=== PATIENT | male | born 1975 | race Hispanic/Latino ===

== ENCOUNTER 2016-12-09 11:51 | Inpatient (IN) | payer OTHER ==
[2016-12-09 11:51] VITALS: BMI 25.1
[2016-12-09 12:35] LABS: BASO # 0.1 K/uL (0.0-0.2); BASO % 1.1 % (0.0-2.0); EOS # 0.4 K/uL (0.0-0.7); EOS % 4.8 % (0.0-4.0); LYMPH % 36.5 % (20.0-40.0); MEAN CELL VOLUME 89.4 fL (80.0-94.0); MEAN CORPUSCULAR HEMOGLOBIN 30.7 pg (27.0-31.0); MEAN CORPUSCULAR HGB CONC 34.4 g/dL (33.0-37.0); MEAN PLATELET VOLUME 10.3 fL (7.2-11.7); MONO # 0.5 K/uL (0.0-0.8); RED CELL DISTRIBUTION WIDTH 13.3 % (11.5-14.5); WHITE BLOOD COUNT 8.2 K/uL (4.8-10.8)
[2016-12-09 12:47] LABS: CHLORIDE 104 mmol/L (98-107); SODIUM 141 mmol/L (132-148)
[2016-12-09 12:48] LABS: POTASSIUM 4.2 mmol/L (3.6-5.2)
[2016-12-09 12:49] LABS: GFR AFRICAN-AMERICAN > 60
[2016-12-09 12:50] LABS: ALB/GLOB RATIO 1.5 (1.0-2.1); ALKALINE PHOSPHATASE 57 U/L (38-126); ALT/SGPT 70 U/L (21-72); AST/SGOT 50 U/L (17-59); BILIRUBIN,TOTAL 0.8 mg/dL (0.2-1.3); BLOOD UREA NITROGEN 12 mg/dL (9-20); CARBON DIOXIDE 20 mmol/L (22-30); GLUCOSE,RANDOM 260 mg/dL (75-110); TOTAL PROTEIN 8.2 g/dL (6.3-8.3)
[2016-12-09 12:51] LABS: ALCOHOL SERUM 182 mg/dl (0-10)
--- NOTE | 2016-12-09 13:03 | C.PDOC ---
History Of Present Illness 41 y/o male with Hx of HTN presents to ED stating he as been drinking and his mother requested he come and get detox. Patient states he doesn't know what he wants to do. Patient is intoxicated and denies fever, chills, sob, cough, chest pain or any other complaints at this time. Time Seen by Provider: 12/09/16 12:39 Chief Complaint (Nursing): Substance Abuse History Per: Patient History/Exam Limitations: no limitations Onset/Duration Of Symptoms: Days Current Symptoms Are (Timing): Still Present Suicide/Self Injury Attempted (Context): None Modifying Factor(s): Alcohol Involuntary Hold By: None Past Medical History Reviewed: Historical Data, Nursing Documentation, Vital Signs Vital Signs: Last Vital Signs Temp 97.5 F L 12/09/16 14:54 Pulse 94 H 12/09/16 14:54 Resp 18 12/09/16 14:54 BP 167/98 H 12/09/16 14:54 Pulse Ox 96 12/09/16 14:54 - Medical History PMH: Diabetes, HTN, Pancreatitis Surgical History: No Surg Hx - [facility] DPT ADMINISTRATION (07/05/13) DX ULTRASOUND-DIGESTIVE (05/08/05) INJECT/INFUSE NEC (11/03/04) MAGNETIC RESONANCE IMAGING OF BRAIN AND BRAIN STEM (05/08/05) OTHER ENDOSCOPY OF SM INTEST (05/08/05) PARENTERAL INFUSION OF CONCENTRATED NUT. SUBSTANCE (05/08/05) VENOUS CATHETERIZATION NEC (05/08/05) Family History: States: No Known Family Hx - Social History Hx Tobacco Use: No Hx Alcohol Use: No Hx Substance Use: No - Immunization History Hx Tetanus Toxoid Vaccination: No Hx Influenza Vaccination: Yes (2016) Hx Pneumococcal Vaccination: No Review Of Systems Except As Marked, All Systems Reviewed And Found Negative. Constitutional: Negative for: Fever, Chills Cardiovascular: Negative for: Chest Pain Respiratory: Negative for: Shortness of Breath Gastrointestinal: Negative for: Nausea, Vomiting Genitourinary: Negative for: Dysuria, Frequency Musculoskeletal: Negative for: Back Pain Skin: Negative for: Rash Physical Exam - Physical Exam Appears: Non-toxic, No Acute Distress, Other (Intoxicated, loud, ) Skin: Normal Color, Warm, Dry, No Rash Head: Atraumatic, Normacephalic Eye(s): bilateral: Normal Inspection Oral Mucosa: Moist Neck: Normal ROM, Supple Chest: Symmetrical Cardiovascular: Rhythm Regular Respiratory: Normal Breath Sounds, No Rales, No Rhonchi, No Wheezing Gastrointestinal/Abdominal: Soft, No Tenderness, No Guarding, No Rebound Neurological/Psych: Oriented x3 ED Course And Treatment - Laboratory Results Result Diagrams: 12/09/16 12:28 12/09/16 12:28 O2 Sat by Pulse Oximetry: 98 (RA) Pulse Ox Interpretation: Normal Disposition - Disposition Disposition: HOSPITALIZED Disposition Time: 15:10 Condition: IMPROVED Forms: [facility] (South Korean) - Clinical Impression Clinical Impression: Alcohol abuse - Scribe Statement The provider has reviewed the documentation as recorded by the Scribe Ailyn Mccallum All medical record entries made by the Scribe were at my direction and personally dictated by me. I have reviewed the chart and agree that the record accurately reflects my personal performance of the history, physical exam, medical decision making, and the department course for this patient. I have also personally directed, reviewed, and agree with the discharge instructions and disposition. Decision To Admit - Pt Status Changed To: Hospital Disposition Of: Inpatient - Admit Certification Admit to Inpatient:: After my assessment, the patient will require hospitalization for at least two midnights. This is because of the severity of symptoms shown, intensity of services needed, and/or the medical risk in this patient being treated as an outpatient. - InPatient: Physician Admission Certification: I certify that this patient requires 2 or more midnights of care for the following reason:: needs inpatient detox - . Bed Request Type: Detox Patient Diagnosis: Alcohol abuse
[2016-12-09 13:33] LABS: URINE BILIRUBIN NEGATIVE (NEGATIVE); URINE BLOOD NEGATIVE (NEGATIVE); URINE COLOR Colorless (YELLOW); URINE GLUCOSE (UA) 3+ mg/dL (Normal); URINE KETONE NEGATIVE (NEGATIVE); URINE LEUKOCYTE ESTERASE NEG Leu/uL (Negative); URINE PROTEIN NEGATIVE (NEGATIVE); URINE UROBILINOGEN NORMAL mg/dL (0.2-1.0); WBC URINE < 1 /hpf (0-5)
--- NOTE | 2016-12-09 15:53 | PCM.BM ---
<Lakshmi Boyer - Last Filed: 12/09/16 15:52> Treatment Plan Problems - Problems identified on initial assessmt Potential for alcohol withdrawal Date Initiated: 12/09/16 Time Initiated: 15:52 Assessment reference: NA Status: Active Priority: 1 Treatment assets and liabiliti Patient Assests: negotiates basic needs, cognitively intact Patient Liabilities: substance abuse, medical problems (ETOH) - Milieu Protocol Maintain good personal hygiene: daily Encourage regular showers, daily Remind patient to perform daily oral care, daily Assist patient to perform ADL's Conduct patient checks and document Observation sheet: Q15 minutes Maintain personal safety: every shift Educate patient to report safety concerns to staff, every shift Monitor environment for contraband/sharps Medication safety: Monitor for expected outcome, potential side effects: every shift, Assess barriers to learning: every shift, Assess readiness for medication education: every shift <Jewel Olivas - Last Filed: 12/11/16 08:30> - Diagnosis (1) Alcohol use disorder, severe, dependence Status: Acute Interventions: 12/11/16 08:31 * Assess 7x/week regarding severity of withdrawal * Educate regarding risks, benefits, side effects and alternatives of medications * Use Motivational Interviewing for abstinence * Use CBT for relapse prevention * Medication management for withdrawal symptoms * Encourage medication assisted treatment * (2) Severe major depression without psychotic features Status: Acute Interventions: 12/11/16 08:31 * Assess/adjust medications daily and /or as needed * See patient on an individual basis 7x/week to assess symptoms of depression * Monitor for side effects & effectiveness of medications * <Estela Zazueta - Last Filed: 12/11/16 15:44> Family Contact Family involvement: Family/SO is involved Family contact: Patient agrees to contact, Telephone contact initiated by staff - Goals for Treatment Patient goals for treatment: Complete detox and transition to co-occurring outpatient tx. Discharge/Continuing Care - Education Needs Education Needs: Patient Medication, Patient Diagnosis/Disease Process, Patient Coping Skills, Patient Anger Management skills, Patient Placement options, Patient Community resources - Discharge Discharge Criteria: Free of agitation, No longer exhibiting s/s of withdrawal, Reduction of target symptoms Discharge to:: With Family - Treatment Team Participation Patient/Family/SO Statement: 12/11/16 15:42 "I wanna get help but I don't have any insurance". (Pt. will be referred to agency with [facility] so no insurance is necessary.) Discussed with Family/SO: No Was Patient/Family/SO present at Treatment Team Meeting: Yes
[2016-12-09] MEDS: Multiple Vitamins Tab PO SCH (17:14)
[2016-12-10] MEDS: Multiple Vitamins Tab PO SCH (09:27)
--- NOTE | 2016-12-10 13:45 | PCM.PSYCH ---
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 Patient states that he came to detox because he is an alcoholic. When he arrived to the hospital, he was accompanied by his project management instructor for support. Patient states that he started drinking in 1993 when he started college, because he was dealing with stress and severe depression. He states that his drinking became a problem "the second week of college." He states he has never been sober for 48 hours since he started drinking. Patient is evasive when asked how much he usually drinks. In the last two weeks, he states that he started with beer and then progressed to vodka and whiskey. "It's not normal to have whiskey for breakfast" he adds. He states that he has tried AA meetings and outpatient programs in the past, but his work schedule is demanding and he can't fulfill every requirement asked of him. He denies ever going to detox or rehab in the past. He denies use of drugs or tobacco. When questioned about his psychiatric history, patient is evasive and seems reluctant to provide details. He states that he saw a psychiatrist for 6 months when he was in college for depression. When asked if he has been depressed since that time, he states "that's a complicated question." When asked if he has had suicidal thoughts, patient states that he doesn't "want to get in trouble." When questioned further, he expresses that he's worried that if he admits to being depressed or suicidal, he will be deemed an unfit parent and he risks having his children taken away. He also states "I'm good at disappointing people." He expresses worry over his financial situation, and states that he is unable to pay his rent right now. Can Coverer saw him once more in the afternoon as he made a statement saying he thought about banging his head. He admitted to feelig depressed this time and he indeed had passive SI without any plan or intention. CBT used, support given and he responded well. he will follow his safety plan and contracted for safety. Lexapro started for depression. 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[employer], and at [employer] Not on parole/probation Current Medications: Active Medications Generic Name Dose Route Start Last Admin Trade Name Freq PRN Reason Stop Dose Admin Chlordiazepoxide 25 mg 12/09/16 18:00 12/10/16 11:54 Librium PO 12/13/16 17:59 25 mg Q6 ARAVIND Administration Taper Chlordiazepoxide 25 mg 12/09/16 16:34 12/10/16 13:18 Librium PO 25 mg Q4H PRN Administration Alcohol Withdrawal Clonidine HCl 0.1 mg 12/09/16 16:34 12/10/16 13:18 Catapres PO 0.1 mg Q4H PRN Administration Symptoms of alcohol withdrawl Folic Acid 1 mg 12/09/16 16:45 12/10/16 09:27 Folic Acid PO Not Given DAILY ARAVIND Gabapentin 300 mg 12/09/16 18:00 12/10/16 09:28 Neurontin PO 300 mg BID ARAVIND Administration Hydroxyzine HCl 50 mg 12/09/16 16:37 Atarax PO Q6H PRN Anxiety Ibuprofen 600 mg 12/09/16 16:37 Motrin Tab PO Q6H PRN Pain, moderate (4-7) Lisinopril 10 mg 12/10/16 10:00 12/10/16 09:27 Zestril PO 10 mg DAILY ARAVIND Administration Metformin HCl 1,000 mg 12/09/16 18:00 12/10/16 09:28 Glucophage PO 1,000 mg BID ARAVIND Administration Multivitamins 1 tab 12/09/16 16:45 12/10/16 09:27 Hexavitamin PO Not Given DAILY ARAVIND Thiamine HCl 100 mg 12/09/16 16:45 12/10/16 09:27 Vitamin B1 Tab PO Not Given DAILY ARAVIND Trazodone HCl 100 mg 12/09/16 16:45 Desyrel PO HS PRN Insomnia Past Psychiatric History - Past Psychiatric History Previous Treatment History: Intensive Outpatient Pertinent Medical Hx (Current Medical&Sleep Prob, Allergies): Allergies Allergy/AdvReac Type Severity Reaction Status Date / Time No Known Allergies Allergy Verified 12/09/16 12:06 Lisinopril PO DAILY 07/20/15 MetFORMIN [glucOPHAGE] 1,000 mg PO BID 07/20/15 Review of Systems - Neurological Neurological: UNREMARKABLE - Psychiatric Psychiatric: Abnormal Sleep Pattern, Anhedonia, Anxiety, Depression, Difficulty Concentrating, Suicidal Ideation (vague and without plan or intention). absent : Hallucinations, Homicidal Ideation Mental Status Examination - Personal Presentation Personal Presentation: Looks stated age - Affect Affect: Constricted (odd) - Motor Activity Motor Activity: Calm - Reliability in Providing Information Reliability in Providing Information: Fair - Speech Speech: Organized - Mood Mood: Depressed, Anxious - Formal Thought Process Formal Thought Process: No Impairment - Cognitive Functions Orientation: Person, Place, Situation, Time Sensorium: Alert Attention/Concentration: Attentive Abstract Thinking: Kincaid Estimate of Intelligence: Average Judgement: Intact, as evidence by: Insight regarding need for hospitalization Memory: Recent intact, as evidence by: Ability to recall events of the day, Remote intact, as evidenced by: Abilit to recall sig. life events - Risk Risk: Suicidal, Withdrawal, Diminished functioning - Strength & Assets Inventory Strength & Assets Inventory: Family support, Cooperative - Limitations Limitations: Other DSM 5 DX - DSM 5 DSM 5 Diagnosis: Alcohol use disorder - severe Alcohol withdrawal Major depressive disorder, recurrent, severe w/o psychosis - Recommended/Plan of Treatment Treatment Recommendations and Plan of Treatment: Librium detox As needed medications Gabapentin for augmentation Attend groups and activities Supportive therapy and psychoeducation [place] for abstinence CBT for relapse prevention Encourage MAT Refer to rehab or IOP Attend self-help groups as well Continue medications Support and psychoeducation daily Attend groups and activities daily After care planning by YUSUF Paul for depression CBT and supportive tx for depression 39 minutes Projected ELOS: 4-5 days Prognosis: good with treatment Discharge Plan and Discharge Criteria: no severe withdrawal symptoms - Smoking Cessation Smoking Cessation Initiated: No
[2016-12-11] MEDS: Multiple Vitamins Tab PO SCH (09:27)
[2016-12-11 10:12] VITALS: RESP 18
--- NOTE | 2016-12-11 14:39 | PCM.PYCHPN ---
Psychiatric Progress Note - Psychiatric Progress Note Patient seen today, length of contact: 18 minutes Patient Chief Complaint: "I'm feeling okay" Problems Identified/Issues Discussed: The patient was seen, chart reviewed, case discussed with staff. The patient is compliant with medications and reports no side effects. Patient states that his mood is "good." He denies withdrawal symptoms including shakes and sweating. Patient expresses worry over his financial situation and states "I feel like a child in an adult's world," "I disappoint people" and "I'm doing my best but everything points to me." Symptoms are improving but patient needs more time to stabilize. After care discussed--patient encouraged to follow up with a therapist at [facility] or in [place] to manage his depression. Support and psychoeducation given. Medication Change: Yes (detox changes daily) Medical Record Reviewed: Yes Mental Status Examination - Cognitive Function Orientation: Person, Place, Situation, Time Memory: Intact Attention: WNL Concentration: Poor Association: WNL Fund of Knowledge: WNL - Mood Mood: Depressed, Anxious - Affect Affect: Constricted (odd) - Speech Speech: Appropriate - Formal Thought Process Formal Thought Process: No Impairment - Homicidal Ideation Homicidal Ideation: No Goal/Treatment Plan - Goal/Treatment Plan Need for Continued Stay: Discharge may exacerbated symptoms Progress Toward Problem(s) and Goals/Treatment Plan: Librium detox As needed medications Gabapentin for augmentation Attend groups and activities Supportive therapy and psychoeducation [place] for abstinence CBT for relapse prevention Encourage MAT Refer to rehab or IOP Attend self-help groups as well Continue medications Support and psychoeducation daily Attend groups and activities daily After care planning by YUSUF Paul for depression CBT and supportive tx for depression
[2016-12-12] MEDS: Multiple Vitamins Tab PO SCH (10:46)
--- NOTE | 2016-12-12 11:31 | PCM.PYCHPN ---
Psychiatric Progress Note - Psychiatric Progress Note Patient seen today, length of contact: 17 minutes Patient Chief Complaint: "I'm okay" Problems Identified/Issues Discussed: The patient was seen, chart reviewed, case discussed with staff. The patient is compliant with medications and reports no side effects except occasional dizziness. Patient states that he's doing okay and slept fine last night. He says that his mood is happy, but he feels remorseful over an incident reported by staff in which he covered up security cameras with a piece of paper. He states "I'm sorry if I upset everybody" and "I did something really stupid." He says his cravings have calmed down but he expresses worry over passing by the liquor store near his house every day. Discussed with patient that he needs to formulate a plan to avoid places and people that will tempt him to drink. Symptoms are improving but patient needs more time to stabilize. After care discussed--patient has an appointment for [facility] (IOP) set up. Support and psychoeducation given. Medication Change: Yes (detox changes daily; inc. Lexapro to 10mg, Librium 25mg ; Naltrexone 50mg) Medical Record Reviewed: Yes Mental Status Examination - Cognitive Function Orientation: Person, Place, Situation, Time Memory: Intact Attention: WNL Concentration: Poor Association: WNL Fund of Knowledge: WNL - Mood Mood: Depressed, Anxious - Affect Affect: Constricted (odd) - Speech Speech: Appropriate - Formal Thought Process Formal Thought Process: No Impairment - Homicidal Ideation Homicidal Ideation: No Goal/Treatment Plan - Goal/Treatment Plan Need for Continued Stay: Discharge may exacerbated symptoms Progress Toward Problem(s) and Goals/Treatment Plan: Librium detox As needed medications Gabapentin for augmentation Attend groups and activities Supportive therapy and psychoeducation [place] for abstinence CBT for relapse prevention Encourage MAT Refer to rehab or IOP Attend self-help groups as well Continue medications Support and psychoeducation daily Attend groups and activities daily After care planning by YUSUF Paul for depression CBT and supportive tx for depression
[2016-12-13] MEDS: Multiple Vitamins Tab PO SCH (10:26)
[2016-12-13 12:19] VITALS: BP 121/81; PULSE 68; TEMP 98.1; O2SAT 98
--- NOTE | 2016-12-13 12:55 | PCM.PYCHDC ---
Mental Status Examination - Mental Status Examination Orientation: Person, Place, Situation, Time Memory: Intact Mood: Depressed, Anxious Affect: Constricted (odd at times, inappropriate at times) Speech: Appropriate Attention: WNL Concentration: Poor Association: WNL Fund of Knowledge: WNL Formal Thought Process: No Impairment Suicidal Ideation: No Current Homicidal Ideation?: No Discharge Summary - Discharge Note Reason for Hospitalization: Alcohol detox Laboratory Data: Abnormal Lab Results 12/12/16 12/13/16 13:18 08:12 POC Glucose (mg/dL) 215 H 187 H Consultations:: List each consultation separately and include: 1. Reason for request. 2. Findings. 3. Follow-up Summary of Hospital Course include:: 1. Description of specific treatment plan utilized for patients during their course of treatmen. 2. Summarize the time- course for resolution of acute symptoms and/or regressed behaviors. 3. Describe issues identified and worked on during hospitalization. 4. Describe medication utilized. 5. Describe medical problems identified and treated. 6. 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 Patient states that he came to detox because he is an alcoholic. When he arrived to the hospital, he was accompanied by his attendant self service store for support. Patient states that he started drinking in 1993 when he started college, because he was dealing with stress and severe depression. He states that his drinking became a problem "the second week of college." He states he has never been sober for 48 hours since he started drinking. Patient is evasive when asked how much he usually drinks. In the last two weeks, he states that he started with beer and then progressed to vodka and whiskey. "It's not normal to have whiskey for breakfast" he adds. He states that he has tried AA meetings and outpatient programs in the past, but his work schedule is demanding and he can't fulfill every requirement asked of him. He denies ever going to detox or rehab in the past. He denies use of drugs or tobacco. When questioned about his psychiatric history, patient is evasive and seems reluctant to provide details. He states that he saw a psychiatrist for 6 months when he was in college for depression. When asked if he has been depressed since that time, he states "that's a complicated question." When asked if he has had suicidal thoughts, patient states that he doesn't "want to get in trouble." When questioned further, he expresses that he's worried that if he admits to being depressed or suicidal, he will be deemed an unfit parent and he risks having his children taken away. He also states "I'm good at disappointing people." He expresses worry over his financial situation, and states that he is unable to pay his rent right now. Wheelage Clerk saw him once more in the afternoon as he made a statement saying he thought about banging his head. He admitted to feeling depressed this time and he indeed had passive SI without any plan or intention. CBT used, support given and he responded well. he will follow his safety plan and contracted for safety. Lexapro started for depression. Hospital course: The pt was admitted and started on treatment with psychotherapy, support, psychoeducation and medications. [place] and CBT used. The pt attended groups and activities, as well as milieu therapy. All the risks and benefits of medications (incl. naltrexone's) are discussed and the patient understood and agreed. The pt improved with the treatments provided. He was however quite depressed, so Lexapro started. He at [facility] tried to cover his sadness with humour and regressed pranks. After care discussed with the patient. He was initially interested in going to [facility] but even with that he had some reservations, ie "I work too much." Meanwhile, his who was with their kids kept calling the [facility] to encourage him to sign out AMA, he reisted and completed the treatment. Her talk and attitude concerned us so much so that we called [facility] to check the welfare of their kids (especially when pt's parents said they would not be taking his kids) The pt changed his mind at the last minute and asked to be referred to a rehab. he claimed his parents made him chg his mind and they too had called some rehabs. One of them told him that they had 2 week wait list Another one also was full and he didn;t want [facility] bc he couldn't go so long (6-9 months) He left with his father and told us that he would stay with them instead of going back home and continue looking for a rehab. Wheelage Clerk gave him a 2-week time off due to his depression and ongoing severe stress. - Final Diagnosis (DSM 5) Condition upon Discharge: IMPROVED DSM 5: Alcohol use disorder - severe Alcohol withdrawal Major depressive disorder, recurrent, severe w/o psychosis Disposition: HOME/ ROUTINE Follow-up Treatment Plan: Continue below medications after discharge. Follow after care plan as discussed. Use relapse prevention skills Return to ER or call 911 if suicidal, homicidal or symptoms relapse. Stay away from stress, alcohol and drugs. See primary doctor once a year. Get LFTs in 1 and 3 months due to naltrexone. 31 min Prescriptions/Medication Reconciliation: Escitalopram [Lexapro] 10 mg PO DAILY #30 tab Gabapentin [Neurontin] 300 mg PO TID #90 cap Lisinopril [Zestril] 10 mg PO DAILY #30 tab metFORMIN [glucOPHAGE] 1,000 mg PO BID #60 tab Naltrexone [Revia] 50 mg PO DAILY #30 tab traZODone [Desyrel] 100 mg PO HS PRN #30 tab PRN Reason: Insomnia - Smoking Cessation Smoking Cessation Medication prescribed: No - Antipsychotic Medications Pt discharged on 2 or more routine antipsychotic medications: No
== END 2016-12-13 13:45 | disposition home or self-care (01) | DRG 750 ==
LOC: C.ER 11:51 → C.7D 15:11
PROVIDERS: ADMIT Psychiatry & Neurology Psychiatry; ATTEND Psychiatry & Neurology Psychiatry
PROC: HZ2ZZZZ Detoxification Services for Substance Abuse Treatment (ICD-10-PCS; principal; 2016-12-09)
PROC: HZ52ZZZ Individual Psychotherapy for Substance Abuse Treatment, Cognitive-Behavioral (ICD-10-PCS; 2016-12-09)
PROC: HZ59ZZZ Individual Psychotherapy for Substance Abuse Treatment, Supportive (ICD-10-PCS; 2016-12-09)
PROC: HZ56ZZZ Individual Psychotherapy for Substance Abuse Treatment, Psychoeducation (ICD-10-PCS; 2016-12-09)
PROC: GZ58ZZZ Individual Psychotherapy, Cognitive-Behavioral (ICD-10-PCS; 2016-12-09)
PROC: GZ56ZZZ Individual Psychotherapy, Supportive (ICD-10-PCS; 2016-12-09)
DX: F10.239 Alcohol dependence with withdrawal, unspecified (principal); F33.2 Major depressive disorder, recurrent severe without psychotic features; E11.9 Type 2 diabetes mellitus without complications; I10 Essential (primary) hypertension

== ENCOUNTER 2017-08-10 17:35 | Emergency (ER) | payer OTHER ==
[2017-08-10 17:36] VITALS: BMI 25.1
[2017-08-10] MEDS ORDERED: Bacitracin 500 Units/gm Oint Foilpak UD TOP ONE (18:27)
--- NOTE | 2017-08-10 18:58 | C.PDOC ---
History Of Present Illness 42yo male, presents to ER with complaints of right hand pain which started last night. Patient states he was putting a mug away and he accidentally hit it against the cupboard causing it to break and cut his hand. He reports a laceration to his right 5th digit with associated pain and decreased movement. He denies any numbness or tingling. RIght hand dominant. PMD: Dr. Yang Time Seen by Provider: 08/10/17 18:14 Chief Complaint (Nursing): Abnormal Skin Integrity History Per: Patient History/Exam Limitations: no limitations Onset/Duration Of Symptoms: Days Current Symptoms Are (Timing): Still Present Quality Of Symptoms: Painful Additional History Per: Patient Past Medical History Reviewed: Historical Data, Nursing Documentation, Vital Signs Vital Signs: Last Vital Signs Temp 98 F 08/10/17 19:20 Pulse 76 08/10/17 19:20 Resp 16 08/10/17 19:20 BP 140/92 H 08/10/17 19:20 Pulse Ox 96 08/10/17 21:54 - Medical History PMH: Diabetes, HTN, Pancreatitis Denies: Depression, Hepatitis, HIV, Seizures, Sexually Transmitted Disease Surgical History: No Surg Hx - [facility] DETOXIFICATION SERVICES FOR SUBSTANCE ABUSE TREATMENT (12/09/16) DPT ADMINISTRATION (07/05/13) DX ULTRASOUND-DIGESTIVE (05/08/05) INDIV PSYCHOTHERAPY FOR SUBSTANCE ABUSE TREATMENT, SUPPORT (12/09/16) INDIV PSYCHOTHERAPY FOR SUBSTANCE ABUSE, COGNITIV BEHAVIORAL (12/09/16) INDIV PSYCHOTHERAPY FOR SUBSTANCE ABUSE, PSYCHOEDUCATION (12/09/16) INDIVIDUAL PSYCHOTHERAPY, COGNITIVE-BEHAVIORAL (12/09/16) INDIVIDUAL PSYCHOTHERAPY, SUPPORTIVE (12/09/16) INJECT/INFUSE NEC (11/03/04) MAGNETIC RESONANCE IMAGING OF BRAIN AND BRAIN STEM (05/08/05) OTHER ENDOSCOPY OF SM INTEST (05/08/05) PARENTERAL INFUSION OF CONCENTRATED NUT. SUBSTANCE (05/08/05) VENOUS CATHETERIZATION NEC (05/08/05) Family History: States: No Known Family Hx, Unknown Family Hx - Social History Hx Tobacco Use: No Hx Alcohol Use: Yes Hx Substance Use: No - Immunization History Hx Tetanus Toxoid Vaccination: No Hx Influenza Vaccination: Yes (2015) Hx Pneumococcal Vaccination: No Review Of Systems Except As Marked, All Systems Reviewed And Found Negative. Constitutional: Negative for: Fever, Chills Skin: Positive for: Other (laceration to right 5th digit) Neurological: Negative for: Weakness, Numbness Physical Exam - Physical Exam Appears: Non-toxic, No Acute Distress Skin: Warm, Dry Head: Atraumatic, Normacephalic Eye(s): bilateral: Normal Inspection, EOMI Nose: Normal Oral Mucosa: Moist Neck: Normal ROM, Supple Chest: Symmetrical Respiratory: No Accessory Muscle Use Extremity: No Normal ROM (+ decreased ROM of right 5th digit ), Capillary Refill (< 2 sec), Swelling (mild swelling to left 5th digit), Other (2cm healing laceration to the dorsal aspect over the 5th MCP) Pulses: Left Radial: Normal, Right Radial: Normal Neurological/Psych: Oriented x3, Normal Motor, Normal Sensation ED Course And Treatment O2 Sat by Pulse Oximetry: 96 (RA) Pulse Ox Interpretation: Normal - Other Rad XR Right Hand X-Ray: Interpreted by Me, Viewed By Me Interpretation: No fractures or dislocations Progress Note: Disucssed with pt wound appears to be healing and it has been 18 + hrs since incident therefore concern for infection. Wound irrigated with sterile saline and closed with steri-strips. Area covered with sterile dressing. Patient instructed on wound care. Splint applied by RN. Discussed extensively with patient the need for follow up with hand specialist to rule out tendon involvement and ensure proper healing of wound. Patient instructed to return to the ED if symptoms worsen or new symptoms arise. Disposition - Disposition Referrals: Frederic Borges MD [Medical Doctor] - [facility] [Outside] [facility] [Outside] Disposition: HOME/ ROUTINE Disposition Time: 18:55 Condition: STABLE Additional Instructions: Follow up with the hand specialist in 1-2 days. Return to eR if symptoms persist or worsen. Prescriptions: Cephalexin [Keflex] 500 mg PO QID 7 Days capsule Instructions: Wound Care (DC) Forms: [facility] (Serbian), Work Excuse - Clinical Impression Clinical Impression: Hand laceration - PA / RN MOBILE / Resident Statement MD/DO has reviewed & agrees with the documentation as recorded. - Scribe Statement The provider has reviewed the documentation as recorded by the Scribe (Tiara Brown) Provider Attestation: All medical record entries made by the Scribe were at my direction and personally dictated by me. I have reviewed the chart and agree that the record accurately reflects my personal performance of the history, physical exam, medical decision making, and the department course for this patient. I have also personally directed, reviewed, and agree with the discharge instructions and disposition.
[2017-08-10 19:27] VITALS: BP 140/92; PULSE 76; RESP 16; TEMP 98
[2017-08-10 21:43] VITALS: O2SAT 96
--- NOTE | 2017-08-11 08:17 | RAD ---
PROCEDURE: Right Hand Radiographs. HISTORY: trauma COMPARISON: None. FINDINGS: BONES: No acute fracture. JOINTS: Unremarkable. SOFT TISSUES: Normal. OTHER FINDINGS: None. IMPRESSION: No demonstrated fracture or dislocation.
== END 2017-08-10 19:27 | disposition home or self-care (01) ==
LOC: C.ER 17:35
DX: S61.411A Laceration without foreign body of right hand, initial encounter (principal); W22.8XXA Striking against or struck by other objects, initial encounter; E11.9 Type 2 diabetes mellitus without complications; I10 Essential (primary) hypertension